=== PATIENT | female | born 1980 | race Caucasian/White ===

== ENCOUNTER 2016-05-05 18:59 | Emergency (ER) | payer MEDICAID ==
[~2016-05-05] VITALS: Ht 160 cm; Wt 61.5 kg
[2016-05-05 19:02] VITALS: Ht 160 cm; Wt 61.5 kg
[2016-05-05] MEDS ORDERED: PROM5SYR2 PO (20:54)
--- NOTE | 2016-05-05 21:02 | ERD ---
ER Documentation Chief Complaint Date/Time DATE: 05/05/16 TIME: 20:55 Chief Complaint cough x 3 weeks HPI Patient is a 35-year-old female here with dry cough 3 weeks. She reports having flulike symptoms early last week with fever, body aches, headache, which have now resolved. She now just complains of this lingering dry cough which is keeping her up at night. She denies sick contacts. She denies international travel. She has been taking some [id number] cough syrup without much relief. ROS All systems reviewed and are negative except as per history of present illness. Medications Home Meds Active Scripts Promethazine HCl/Codeine (Prometh-Codein 6.25-10 mg/5 ml) 5 Ml Syrup, 5 ML PO QHS for 7 Days Prov:RUBY SPENCE, BERTA 05/05/16 Allergies Allergies: Coded Allergies: No Known Allergy (Unverified , 05/05/16) PMhx/Soc History of Surgery: Yes (LEFT WRIST) Anesthesia Reaction: No Hx Neurological Disorder: No Hx Respiratory Disorders: No Hx Cardiac Disorders: No Hx Psychiatric Problems: No Hx Miscellaneous Medical Probl: Yes (HIGH CHOLESTEROL) Hx Alcohol Use: No Hx Substance Use: No Hx Tobacco Use: No Smoking Status: Never smoker Physical Exam Vitals Vital Signs Date Time Temp Pulse Resp B/P Pulse Ox O2 Delivery O2 Flow Rate FiO2 05/05/16 19:02 98.1 80 20 125/56 99 Physical Exam INITIAL VITAL SIGNS: Reviewed by me, afebrile, no tachycardia, oximetry 98% on room air, no tachypnea GENERAL: Alert. Well developed and well nourished. No respiratory distress HEAD: Head is normocephalic. Atraumatic. EYES: EOMI. No scleral icterus. No conjunctival injection. ENT: External ears, nose, and mouth normal. Ear canals clear and without erythema or purulence. Tympanic membranes clear, positive light reflex, no injection, no erythema, no effusion. Nasal passages patent and without rhinorrhea or erythema. Moist mucous membranes. NECK: Supple. Full range of motion. Trachea midline. No lymphadenopathy. RESPIRATORY: No tachypnea. Clear to auscultation bilaterally. No wheezing, rales , or rhonchi. CV: Regular rate and rhythm. No murmurs, rubs, or gallops ABDOMEN: Soft, non-distended, non-tender. No guarding. No rebound. No masses. Bowel sounds normal in all quadrants. BACK: No CVA tenderness. Full ROM. EXTREMITIES: No obvious deformity. No clubbing or cyanosis. No edema. SKIN: Warm and dry. No diaphoresis. No obvious rashes or lesions. NEUROLOGIC: Alert and oriented x 3. Appropriate. Face is symmetric. Speech is normal. Moves all extremities equally. Procedures/MDM Nursing Notes Reviewed Previous Medical Records requested via [email or web address]. EMERGENCY DEPARTMENT COURSE / MEDICAL DECISION MAKING: The patient comes to the ED secondary to dry cough 3 weeks. Differential diagnosis upon initial evaluation includes but is not limited to: Pneumonia, sepsis, meningitis, viral upper respiratory tract infection, asthma, and others. Given that the patient is afebrile, well-appearing, benign physical exam, oximetry 99% on room air, afebrile, no tachypnea, no increased respiratory effort, no chest pain, and no shortness of breath, I have low suspicion at this time for pneumonia, sepsis, meningitis, asthma, or any other serious cause of cough. Given the patient's history of present illness, benign physical exam, normal vital signs, I believe that she has a lingering cough from her reported flulike symptoms last week. Given this, I believe that she is an appropriate candidate for outpatient management and follow-up at this time. Final impression: Upper respiratory tract infection, likely viral Based on patient's history of present illness and physical examination the decision was made to discharge. There is no evidence of life threatening injuries or illnesses at this time. On re-examination, patient resting in no distress, stable vital signs, and reports feeling safe for discharge with outpatient follow up with PMD in 2-3 days. Patient given return precautions. She verbalized understanding and agreed to return precautions. All of her questions and concerns were addressed prior to discharge. She agrees with the plan of care. Prescription Promethazine with codeine syrup Departure Diagnosis: Primary Impression: Cough Condition: Stable Patient Instructions: Uri, Viral, No Abx (Adult) Additional Instructions: Llame al doctor MAANA y ronnie annia KEYONA PARA DENTRO DE 2-3 BRITO. Dgale a la secretaria que nosotros le instruimos hacer esta keyona. Avise o llame si mata condicin se empeora antes de la keyona. Regresa aqui si peor o no mejor. RUBY SPENCE, ORACLE ARCHITECT May 05, 2016 21:02
== END 2016-05-05 21:05 | disposition home or self-care (01) ==
LOC: FTE 18:59
DX: R05 Cough (principal)
CPT/HCPCS: 99283